=== PATIENT | male | born 1985 | race Hispanic/Latino ===

== ENCOUNTER 2017-06-01 05:21 | Inpatient (IN) | payer MEDICAID ==
[2017-06-01 05:22] VITALS: BMI 29.0
--- NOTE | 2017-06-01 05:55 | ED PDOC ---
HPI: Psych/Substance Abuse Time Seen by Provider: 06/01/17 05:40 Chief Complaint (Nursing): Psychiatric Evaluation Chief Complaint (Provider): SI History Per: Patient History/Exam Limitations: no limitations Onset/Duration Of Symptoms: Days Current Symptoms Are (Timing): Still Present Suicide/Self Injury Attempted (Context): Cut Wrists, Other Modifying Factor(s): Marijuana, Narcotics, Cocaine Additional Complaint(s): Pt states he has attempted suicide twice in the last 2 weeks. Last 1 week ago he sttempted to overdose with heroine and cocaine. Pt states the week prior he attempted to cut his wrists but his pulled the razor blade out of his hand. PT states he was sober for awhile until 1 week ago. Past Medical History Reviewed: Historical Data, Nursing Documentation, Vital Signs Vital Signs: Last Vital Signs Temp 98.1 F 06/01/17 05:41 Pulse 80 06/01/17 05:41 Resp 16 06/01/17 05:41 BP 130/86 06/01/17 05:41 Pulse Ox 97 06/01/17 05:41 - Medical History PMH: Anxiety, Bipolar Disorder, Depression Denies: Diabetes, Hepatitis, HIV, HTN, Chronic Kidney Disease, Seizures, Sexually Transmitted Disease - Surgical History Surgical History: No Surg Hx - Family History Family History: States: Unknown Family Hx - Living Arrangements Living Arrangements: With Family () - Social History Current smoker - smoking cessation education provided: Yes Drugs: Cannabis, Cocaine, Opiates - Immunization History Hx Tetanus Toxoid Vaccination: No Hx Influenza Vaccination: No Hx Pneumococcal Vaccination: No - Home Medications Home Medications: Ambulatory Orders Medication Instructions Recorded Doxepin [Sinequan] 20 mg PO HS #30 cap 07/17/16 [place] Carbonate [[place] 300 mg PO TID #45 cap 07/17/16 Carbonate 300MG] hydrOXYzine Pamoate [Vistaril] 50 mg PO Q8 PRN #30 cap 07/17/16 - Allergies Allergies/Adverse Reactions: Allergies Allergy/AdvReac Type Severity Reaction Status Date / Time FISH Allergy VOMITING Verified 07/08/16 21:29 Review of Systems ROS Statement: Except As Marked, All Systems Reviewed And Found Negative Constitutional: Negative for: Fever, Chills Psych: Positive for: Depression, Suicidal ideation. Negative for: Psychosis Physical Exam - Reviewed Nursing Documentation Reviewed: Yes Vital Signs Reviewed: Yes - Physical Exam Appears: Positive for: Well, Non-toxic, No Acute Distress Head Exam: Positive for: ATRAUMATIC, NORMAL INSPECTION, NORMOCEPHALIC Skin: Positive for: Warm. Negative for: Normal Color (Superficial linea abrasion, with scabbing right wrist; (+) track guan bilateral arms) Eye Exam: Positive for: Normal appearance, EOMI, PERRL ENT: Positive for: Normal ENT Inspection Neck: Positive for: Normal, Painless ROM Cardiovascular/Chest: Positive for: Regular Rate, Rhythm Respiratory: Positive for: CNT, Normal Breath Sounds Gastrointestinal/Abdominal: Positive for: Normal Exam, Bowel Sounds, Soft Back: Positive for: Normal Inspection Extremity: Positive for: Normal ROM Neurologic/Psych: Positive for: Alert, Oriented - ECG O2 Sat by Pulse Oximetry: 97 Medical Decision Making Medical Decision Making: Crisis aware - Endorsed pending labs and crisis evaluation. Disposition - Clinical Impression Clinical Impression: Suicidal ideation - Patient ED Disposition Is Patient to be Admitted: Transfer of Care - Disposition Disposition: Transfer of Care Disposition Time: 05:58 Condition: GOOD
--- NOTE | 2017-06-01 06:07 | ED PDOC ---
- ECG O2 Sat by Pulse Oximetry: 97 Medical Decision Making Medical Decision Making: Time: 0600 --Patient was endorsed to provider by Lupis Isbell PA-C. Pending bloodwork results and crisis evaluation. --Patient is resting comfortably with stable vital signs. Time: 0700 --Patient was signed out to Dr. Gary De León. Pending bloodwork results and crisis evaluation. Scribe Attestation: Documented by Bronwyn Da Silva, acting as a scribe for John Rosales MD. Provider Scribe Attestation: All medical record entries made by the Scribe were at my direction and personally dictated by me. I have reviewed the chart and agree that the record accurately reflects my personal performance of the history, physical exam, medical decision making, and the department course for this patient. I have also personally directed, reviewed, and agree with the discharge instructions and disposition. Disposition - Clinical Impression Clinical Impression: Suicidal ideation - POA Present On Arrival: None - Disposition Disposition: Transfer of Care Disposition Time: 07:00 Condition: GOOD Forms: [employer] (E[place]ian) Patient Signed Over To: Gary De León Handoff Comments: pending labs and crisis eval
[2017-06-01 06:24] LABS: HEMATOCRIT 42.4 % (35.0-51.0); MEAN CELL VOLUME 87.5 fl (80.0-94.0); MEAN CORPUSCULAR HEMOGLOBIN 28.5 pg (27.0-31.0); MEAN CORPUSCULAR HGB CONC 32.6 g/dL (33.0-37.0); RED CELL DISTRIBUTION WIDTH 13.1 % (11.5-14.5); WHITE BLOOD COUNT 8.8 K/uL (4.8-10.8)
[2017-06-01 06:35] LABS: ALB/GLOB RATIO 1.4 (1.0-2.1); ALCOHOL SERUM < 10 mg/dl (0-10); ALKALINE PHOSPHATASE 63 U/L (38-126); ALT/SGPT 55 U/L (21-72); AST/SGOT 39 U/L (17-59); BILIRUBIN,TOTAL 0.2 mg/dl (0.2-1.3); BLOOD UREA NITROGEN 16 mg/dl (9-20); CALCIUM 8.8 mg/dL (8.4-10.2); CARBON DIOXIDE 24 mmol/L (22-30); CHLORIDE 109 mmol/L (98-107); GFR AFRICAN-AMERICAN > 60; GLUCOSE,RANDOM 113 mg/dL (75-110); POTASSIUM 4.1 MMOL/L (3.6-5.0); SODIUM 146 mmol/l (132-148); TOTAL PROTEIN 6.6 G/DL (6.3-8.2)
--- NOTE | 2017-06-01 07:38 | ED PDOC ---
- Laboratory Results Result Diagrams: 06/01/17 06:21 06/01/17 06:21 - ECG O2 Sat by Pulse Oximetry: 97 (RA) Pulse Ox Interpretation: Normal Medical Decision Making Medical Decision Making: Patient signed out to provider at 0700 pending bloodwork and crisis evaluation. Medically stable for psychiatric admission Scribe Attestation Documented by Nneka Nunez acting as a scribe for Gary De León MD. Provider Attestation All medical record entries made by the Scribe were at my direction and personally dictated by me. I have reviewed the chart and agree that the record accurately reflects my personal performance of the history, physical exam, medical decision making, and the department course for this patient. I have also personally directed, reviewed, and agree with the discharge instructions and disposition. Disposition - Clinical Impression Clinical Impression: Suicidal ideation - POA Present On Arrival: None - Disposition Disposition: Admitted as In-Patient Disposition Time: 07:43 Condition: GOOD Forms: [employer] (Greek)
[2017-06-01 08:05] VITALS: O2SAT 99
[2017-06-01] MEDS ORDERED: Alum-Mag Hydrox-Simethicone Susp (30 mL) PO PRN (12:30)
[2017-06-01] MEDS ORDERED: Magnesium Hydroxide Susp 30 ml UD PO PRN (12:30)
[2017-06-01] MEDS ORDERED: DiphenhydrAMINE 50 mg/ml Inj IM PRN (12:30)
--- NOTE | 2017-06-01 12:31 | PCM.PSYCH ---
Initial Psychiatric Evaluation - Initial Psychiatric Evaluation Type of Admission: Voluntary Legal Status: Guardian Chief Complaint (in patient's own words): i dont want to talk about it Patient's Reaction to Hospitalization: pt is not cooperative History of Present Illness and Precipitating Events: This is a 32 year old male with h/o polysubstance abuse and depression,one previous admission to [facility],came to ER because he has been very depressed and attempted suicide twice past 2 weeks,las t week overdosing on opiates,cocaine and cannabis from street and the week before he tried to cut his wrist and girl friend stopped it and the appparent trigger being the girlfriend being with twin and possibility of one baby not surviving .pt claims h/o ADHD and prescribed strattera which is the only meds he takes.pt denies any withdrawls from opiates Past Psychiatric History - Past Psychiatric History At what hospital: [facility] Nature of Treatment: for substanse abuse,depression History of Abuse: denies History of ETOH/Drug Use: pt has long h/o abusing opiates,cannabis and cocaine and relapsed recently History of Family Illness: not reported Pertinent Medical Hx (Current Medical&Sleep Prob, Allergies): Allergies Allergy/AdvReac Type Severity Reaction Status Date / Time FISH Allergy VOMITING Verified 07/08/16 21:29 Amoxicillin [Amoxil 500 mg Cap] 500 mg PO Q8 06/01/17 Buprenorphine HCl/Naloxone HCl [Suboxone 8 mg-2 mg Sl Film] 1 film PO Q8 Folic Acid [Folic Acid] 1 mg PO DAILY 06/01/17 Multivitamin [Multivitamins] 1 cap PO DAILY 06/01/17 Thiamine [Vitamin B1 Tab] 100 mg PO DAILY 06/01/17 not significant Mental Status Examination - Personal Presentation Personal Presentation: Looks stated age - Affect Affect: Flat - Motor Activity Motor Activity: Psychomotor Agitation - Reliability in Providing Information Reliability in Providing Information: Poor, due to alteration in thoughts - Formal Thought Process Formal Thought Process: Flight of ideas - Obsessions/Compulsions Obsessions: No Compulsions: No - Cognitive Functions Orientation: Person, Place, Time Sensorium: Alert Attention/Concentration: Easily distracted Abstract Thinking: [place] Estimate of Intelligence: Average Judgement: Imparied, as evidence by: Poor judgement, Imparied, as evidence by: Lack of insight into illness Memory: Recent intact, as evidence by: Ability to recall events of the day, Remote intact, as evidenced by: Ability to recall historical events DSM 5 DX - DSM 5 DSM 5 Diagnosis: depresive disorder not specified polysubstance abuse and dependence( cannabis,opiate,Cocaine) - Recommended/Plan of Treatment Treatment Recommendations and Plan of Treatment: Pt has agreed to start lexapro 5 mg hs and will titrate it to stabilize the pt and engage pt in therapy. Will monitor for withdrawl from opiates and treat with clonidine and ativan for severe agitation and haldol prn for psychosis.
--- NOTE | 2017-06-01 18:55 | PCM.BM ---
Treatment Plan Problems - Problems identified on initial assessmt Hopelessness/Helplessness Date Initiated: 06/01/17 Time Initiated: 18:53 Assessment reference: NA Status: Active Medication nonadherence Date Initiated: 06/01/17 Time Initiated: 18:54 Assessment reference: NA Status: Active Defensive Coping Date Initiated: 06/01/17 Time Initiated: 18:54 Assessment reference: NA Status: Active Treatment assets and liabiliti Patient Assests: ADL independent, physically healthy Patient Liabilities: financial problems (homelessness), substance abuse, other ( emotional issues) - Milieu Protocol Maintain good personal hygiene: daily Encourage regular showers, daily Remind patient to perform daily oral care, daily Assist patient to perform ADL's Maintain personal safety: every shift Educate patient to report safety concerns to staff, every shift Monitor environment for contraband/sharps Medication safety: Monitor for expected outcome, potential side effects: every shift, Assess barriers to learning: every shift, Assess readiness for medication education: every shift Milieu Narrative: Pt has agreed to start lexapro 5 mg hs and will titrate it to stabilize the pt and engage pt in therapy. Will monitor for withdrawl from opiates and treat with clonidine and ativan for severe agitation and haldol prn for psychosis. Discharge/Continuing Care - Treatment Team Participation Patient/Family/SO Statement: Pt has agreed to start lexapro 5 mg hs and will titrate it to stabilize the pt and engage pt in therapy. Will monitor for withdrawl from opiates and treat with clonidine and ativan for severe agitation and haldol prn for psychosis.
[2017-06-01] MEDS ORDERED: guaiFENesin 200 mg/10 ml Syrup UD PO PRN (19:46)
--- NOTE | 2017-06-01 20:09 | CP.PCM.CON ---
History of Present Illness - History of Present Illness History of Present Illness: CC: Suicidal ideation This is a 32 year old male with a past medical history of opiate dependance, polysubstance abuse, and depression, with suicidal ideation, who was admitted to the inpatient psychiatric unit due to suicidal attempt. The patient states he has hx of ADHD for which he has been on strattera. He admits to heroin and cocaine abuse. He admits to having a cough for the past week which is productive of greenish sputum but denies any sob, fevers, chills, or other symptoms. rest of ROS as below. Review of Systems - Constitutional Constitutional: absent: Anorexia, Chills, Fatigue, Fever, Frequent Falls, Headache - EENT Eyes: absent: Discharge, Irritation, Loss of Peripheral Vision, Requires Corrective Lenses, Sees Flashes Nose/Mouth/Throat: Nasal Congestion. absent: Nasal Trauma, Nose Pain, Post Nasal Drip, Bleeding Gums - Cardiovascular Cardiovascular: absent: Chest Pain, Chest Pain at Rest, Claudication, Diaphoresis, Pain Radiating to Arm/Neck/Jaw, Leg Edema - Respiratory Respiratory: Excessive Mucous Production, Change in Mucous Color. absent: Dyspnea, Hemoptysis, Dyspnea on Exertion, Snoring, Pain on Inspiration, Chest Congestion - Gastrointestinal Gastrointestinal: absent: Change in Bowel Habits, Cramping, Diarrhea, Excessive Flatus, Heartburn, Melena, Nausea - Musculoskeletal Musculoskeletal: absent: Joint Swelling, Limited Range of Motion, Muscle Weakness, Myalgias, Neck Pain - Integumentary Integumentary: absent: Dry Skin, Hirsutism, Lesions, New Lesions - Neurological Neurological: absent: Disequilibrium, Dizziness, Numbness, Focal Weakness, Loss of Vision, Radicular Pain, Weakness - Psychiatric Psychiatric: Behavioral Changes, Depression, Difficulty Concentrating, Irritability, Suicidal Ideation. absent: Memory Loss, Panic Attacks, Paranoia, Visual Hallucinations - Endocrine Endocrine: absent: Change in Body Appearance, Deepening of Voice, Excessive Sweating, Fatigue - Hematologic/Lymphatic Hematologic: absent: Easy Bleeding, Easy Bruising Past Patient History - Infectious Disease Hx of Infectious Diseases: None - Past Medical History & Family History Past Medical History?: Yes Past Family History: Reviewed and not pertinent - Past Social History Smoking Status: Current Some Days Smoker Drugs: Cannabis, Cocaine, Opiates - CARDIAC Hx Cardiac Disorders: No (Pt denies) Hx Hypertension: No (Pt denies) - PULMONARY Hx Respiratory Disorders: No Hx Tuberculosis: (Pt denies) - NEUROLOGICAL Hx Neurological Disorder: No HX Cerebrovascular Accident: (Pt denies) Hx Seizures: (Pt denies) - HEENT Hx HEENT Problems: No - RENAL Hx Chronic Kidney Disease: No - ENDOCRINE/METABOLIC Hx Endocrine Disorders: No - HEMATOLOGICAL/ONCOLOGICAL Hx Blood Disorders: No Hx Cancer: (Pt denies) Hx Human Immunodeficiency Virus (HIV): (Pt denies) - INTEGUMENTARY Hx Dermatological Problems: No - MUSCULOSKELETAL/RHEUMATOLOGICAL Hx Musculoskeletal Disorders: No - GASTROINTESTINAL Hx Gastrointestinal Disorders: No - GENITOURINARY/GYNECOLOGICAL Hx Genitourinary Disorders: No Hx Sexually Transmitted Disorders: (Pt denies) - PSYCHIATRIC Hx Depression: Yes Hx Substance Use: Yes - SURGICAL HISTORY Hx Surgeries: No - ANESTHESIA Hx Anesthesia: No Meds Allergies/Adverse Reactions: Allergies Allergy/AdvReac Type Severity Reaction Status Date / Time FISH Allergy VOMITING Verified 07/08/16 21:29 - Medications Medications: Current Medications Acetaminophen (Tylenol 325mg Tab) 650 mg PO Q4 PRN PRN Reason: Pain, moderate (4-7) Al Hydrox/Mg Hydrox/Simethicone (Maalox Plus 30 Ml) 30 ml PO Q4 PRN PRN Reason: Dyspepsia Clonidine HCl (Catapres) 0.1 mg PO TID [facility] Last Admin: 06/01/17 17:59 Dose: Not Given Diphenhydramine HCl (Benadryl) 50 mg IM Q6 PRN PRN Reason: Extrapyramidal S/S Unable PO Diphenhydramine HCl (Benadryl) 50 mg PO Q6 PRN PRN Reason: Extrapyramidal Symptoms Guaifenesin (Robitussin) 200 mg PO Q6 PRN PRN Reason: Cough Haloperidol (Haldol) 5 mg PO Q4 PRN PRN Reason: Agitation Haloperidol Lactate (Haldol) 5 mg IM Q4 PRN PRN Reason: Agitation, Unable to Take PO Ibuprofen (Motrin Tab) 800 mg PO Q8 PRN PRN Reason: Pain, severe (8-10) Loperamide HCl (Imodium) 2 mg PO QID PRN PRN Reason: Diarrhea Lorazepam (Ativan) 2 mg IM Q4 PRN PRN Reason: Anxiety/Agitation,Unable PO Lorazepam (Ativan) 2 mg PO Q4 PRN PRN Reason: Anxiety/Agitation Magnesium Hydroxide (Milk Of Magnesia) 30 ml PO HS PRN PRN Reason: Constipation Nicotine (Nicoderm Cq) 1 patch TD DAILY ELIAN Physical Exam - Constitutional Appears: Well - Head Exam Head Exam: ATRAUMATIC, NORMAL INSPECTION, NORMOCEPHALIC - Eye Exam Eye Exam: EOMI, Normal appearance, PERRL Pupil Exam: NORMAL ACCOMODATION, PERRL - ENT Exam ENT Exam: Mucous Membranes Moist, Normal Exam - Respiratory Exam Respiratory Exam: Clear to Auscultation Bilateral, NORMAL BREATHING PATTERN - Cardiovascular Exam Cardiovascular Exam: REGULAR RHYTHM - GI/Abdominal Exam GI & Abdominal Exam: Normal Bowel Sounds, Soft. absent: Tenderness - Rectal Exam Rectal Exam: NORMAL INSPECTION - Back Exam Back exam: NORMAL INSPECTION - Neurological Exam Neurological exam: Alert, CN II-XII Intact, Normal Gait, Oriented x3, Reflexes Normal - Psychiatric Exam Psychiatric exam: Depressed, Suicidal Ideation Results - Vital Signs Recent Vital Signs: Last Vital Signs Temp 97.9 F 06/01/17 16:47 Pulse 59 L 06/01/17 17:59 Resp 18 06/01/17 16:47 BP 127/77 06/01/17 17:59 Pulse Ox 99 06/01/17 10:08 - Labs Result Diagrams: 06/01/17 06:21 06/01/17 06:21 Labs: Laboratory Results - last 24 hr 06/01/17 06/01/17 06/01/17 06:21 06:21 06:32 WBC 8.8 RBC 4.84 Hgb 13.8 Hct 42.4 MCV 87.5 MCH 28.5 MCHC 32.6 L RDW 13.1 Plt Count 162 Sodium 146 Potassium 4.1 Chloride 109 H Carbon Dioxide 24 Anion Gap 17 BUN 16 Creatinine 0.9 Est GFR ( Amer) > 60 Est GFR (Non-Af Amer) > 60 Random Glucose 113 H Calcium 8.8 Total Bilirubin 0.2 AST 39 ALT 55 Alkaline Phosphatase 63 Total Protein 6.6 Albumin 3.8 Globulin 2.8 Albumin/Globulin Ratio 1.4 Urine Opiates Screen Positive H Urine Methadone Screen Positive H Ur Barbiturates Screen Negative Ur Phencyclidine Scrn Positive H Ur Amphetamines Screen Negative U Benzodiazepines Scrn Positive H U Oth Cocaine Metabols Positive H U Cannabinoids Screen Positive H Alcohol, Quantitative < 10 Assessment & Plan - Assessment and Plan (Free Text) Plan: ASSESSMENT - Suicidal ideation - Bronchitis - Polysubstance abuse - Depression - Hx ADHD - Tobacco abuse PLAN - Psychiatric management as per admitting attending - Monitor vitals - Add nicotine patch - Robitussin 200 mg po q6h prn for cough
--- NOTE | 2017-06-01 23:02 | CARD ---
APPROVED REPORT EKG Measurement Heart [id number] <Conclusion> Normal sinus rhythm Normal ECG
[2017-06-02 09:20] LABS: T4 11.6 ug/dl (5.5-11.0)
[2017-06-02 09:34] LABS: THYROID STIMULATING HORMONE 0.45 mIU/ML (0.46-4.68)
--- NOTE | 2017-06-02 17:13 | PCM.PYCHPN ---
Psychiatric Progress Note - Psychiatric Progress Note Patient seen today, length of contact: pt seen and evaluated Patient Chief Complaint: pt has remained isolated and stays in his room but still feels anxious but denies withdrawl from opiates now.no side effects to meds. Problems Identified/Issues Discussed: depression,opiate abuse Medication Change: Yes (increase lexapro to 10 mg hs) Medical Record Reviewed: Yes Mental Status Examination - Cognitive Function Orientation: Person, Place, Time Memory: Intact Attention: Poor Concentration: Poor Association: WNL Fund of Knowledge: WNL - Mood Mood: Depressed, Anxious - Affect Affect: Flat - Speech Speech: Appropriate - Formal Thought Process Formal Thought Process: Flight of ideas - Suicidal Ideation Suicidal Ideation: No - Homicidal Ideation Homicidal Ideation: No Goal/Treatment Plan - Goal/Treatment Plan Progress Toward Problem(s) and Goals/Treatment Plan: Will increase lexapro to 10 mg hs to stabilize the pt and engage pt in therapy. Will monitor for withdrawl from opiates and treat with clonidine and ativan for severe agitation and haldol prn for psychosis.
[2017-06-02 17:51] VITALS: RESP 18
[2017-06-03 09:04] VITALS: BP 112/56; PULSE 71
[2017-06-03 09:13] VITALS: TEMP 97.7
== END 2017-06-03 12:32 | disposition left against medical advice (07) | DRG 426 ==
LOC: H.ER 05:21 → H.ERHOLD 07:41 → H.PSYCH 10:04
PROVIDERS: ADMIT Psychiatry & Neurology Psychiatry; ATTEND Psychiatry & Neurology Psychiatry
PROC: GZHZZZZ Group Psychotherapy (ICD-10-PCS; principal; 2017-06-01)
DX: F32.9 Major depressive disorder, single episode, unspecified (principal); R45.851 Suicidal ideations; F11.10 Opioid abuse, uncomplicated; F14.10 Cocaine abuse, uncomplicated; F17.200 Nicotine dependence, unspecified, uncomplicated; J40 Bronchitis, not specified as acute or chronic; F12.10 Cannabis abuse, uncomplicated; Z91.013 Allergy to seafood